=== PATIENT | male | born 1975 | race African-American/Black ===

== ENCOUNTER 2021-10-21 12:24 | Emergency (ER) | payer OTHER ==
[~2021-10-21] VITALS: Ht 177.8 cm; Wt 74.0 kg
[2021-10-21 15:08] VITALS: BP 160/120
[2021-10-21] MEDS ORDERED: IBUPROFEN 600 MG TABLET PO ONE (15:15)
[2021-10-21] MEDS ORDERED: ACETAMINOPHEN 500 MG TABLET PO ONE (15:15)
== END 2021-10-21 15:53 | disposition home or self-care (01) ==
LOC: EMS 12:24
DX: S39.012A Strain of muscle, fascia and tendon of lower back, initial encounter (principal); S16.1XXA Strain of muscle, fascia and tendon at neck level, initial encounter; W17.89XA Other fall from one level to another, initial encounter; Y93.89 Activity, other specified; Y92.89 Other specified places as the place of occurrence of the external cause; Y99.8 Other external cause status
CPT/HCPCS: 72040; 72070; 72100; 72170; 99284; Z7502; Z7610